=== PATIENT | male | born 1945 | race Caucasian/White ===

== ENCOUNTER → 2020-02-19 10:43 | Outpatient (BNVA) | payer MEDICARE, OTHER, SELFPAY | PROVIDERS: PCP Internal Medicine; Referring Provider Internal Medicine; Visit Provider Urology | DX: Z76.89 Persons encountering health services in other specified circumstances (principal) | CPT/HCPCS: Q3014 ==

== ENCOUNTER → 2021-02-24 10:12 | Outpatient (BNVA) | payer MEDICARE, SELFPAY | PROVIDERS: PCP Internal Medicine; Visit Provider Urology | DX: N40.1 Benign prostatic hyperplasia with lower urinary tract symptoms (principal) | CPT/HCPCS: Q3014 ==

== ENCOUNTER → 2022-02-24 08:35 | Outpatient (BNVA) | payer MEDICARE, SELFPAY | PROVIDERS: PCP Internal Medicine; Visit Provider Urology | DX: N40.1 Benign prostatic hyperplasia with lower urinary tract symptoms (principal); R97.20 Elevated prostate specific antigen [PSA] | CPT/HCPCS: Q3014 ==

== ENCOUNTER 2023-02-24 11:11 | Outpatient (AMB) | payer MEDICARE, OTHER, SELFPAY ==
--- NOTE | 2023-02-24 11:18 | MHC.OFFVIS ---
Intake Intake Visit Reasons: 1Y PSA(set) Intake Note: Patient is Present for Follow Up PSA/PVR Urology Medication: Finasteride, Antibiotic Allergies: Penicillin, Levofloxacin Blood Thinners: None PVR: 0ml Allergies levofloxacin [Levaquin] Allergy (Unknown, Verified 02/24/23 11:25) Unknown penicillin V Allergy (Unknown, Verified 02/24/23 11:25) Unknown ivp Allergy (Unknown, Uncoded 02/24/23 11:25) Unknown HPI HPI Comments History of Present Illness Details Vinicius is a pleasant male. He is a patient of Dr. Ray. He seen for the following urologic conditions - lower urinary tract symptoms Doing well with current urinary parameters Minimal nocturia PSA remaining low at 1.6 Could reduce finasteride to Tuesday, Tuesday, Tuesday Twelve month follow-up Recent evaluation for tingling in his hands He suspects ulnar nerve entrapment Elevated PSA/Abnormal VICKI: Significant PSA dropped continuing Discussed results Will continue medication. He presents for further evaluation of elevated PSA. Current management is medication with 5AR. Laboratory investigations include a free and total PSA evaluation July 2005 5.7, July 2006 4.6, August 2008 7.0, October 2009 6.0, July 2010 4.9, July 2011 6.0, October 2014 4.6, October 2014 4.2, July 2015 3.6, Apr 2016 6.1, 11/11 2.4, 12/13 3.4, 12/14 2.4. - 01/14 1.8, 01/15 1.7, 01/16 1.4, 02/17 1.6 Individualized Prostate Cancer Risk Calculator 5-10% high risk, , Would like to continue with observation and understands and accepts the risks of a possible delay in diagnosis. A TRUS biopsy has been performed and is negative 04/2009 Symptoms include weak stream, intermittency, and are stable. Overall symptoms are mild. Therapeutic plan will be Continue finasteride [facility] Medical History Arthritis Hyperlipidemia GERD (gastroesophageal reflux disease) Nocturia Weak urinary stream Benign prostatic hyperplasia without lower urinary tract symptoms Elevated PSA Surgical History History of surgery Review of Systems Const Denies chills and Denies fever(s) Card Reports no additional complaints and Denies syncope Resp Denies cough GI Denies abdominal pain and Denies heartburn Reports as per HPI and Denies change in libido Neuro Denies syncope Psych Denies change in libido Endo Denies change in libido Physical Exam Const General: cooperative, healthy appearing, comfortable and no acute distress Orientation/consciousness: patient oriented x3 HEENT Face and sinus: Yes normal facial exam Mouth: moist mucous membranes Neck Neck: Yes normal visual inspection, Yes full ROM and Yes trachea midline Chest Chest palpation & inspection: normal inspection of the chest Resp Effort & Inspection: normal respiratory effort, able to speak in complete sentences and no respiratory distress GI Inspection: Yes normal to inspection Back/Spine/Pelvis Cervical Spine: normal cervical lordosis Thoracic/Lumbar Spine: thoracic and lumbar spine normal to inspection Skin General skin exam: no rashes or lesions noted Neuro General: patient oriented x3, gait normal, tone normal and moves all extremities Extrem General: Yes normal to inspection and Yes capillary refill normal Assessment & Plan Assessment & Plan (1) BPH loc w urin obs/LUTS: Code(s): N40.1 - Benign prostatic hyperplasia with lower urinary tract symptoms (2) Elevated PSA: Code(s): R97.20 - Elevated prostate specific antigen [PSA] Plan Reduce finasteride to Tuesday Twelve month follow-up Orders: Orders Prostate Specific Antigen 364 Days N40.1 - Benign prostatic hyperplasia with lower urinary tract symptoms Patient Instructions: Imaging studies, laboratory and physical exam results were discussed and reviewed in detail. No major barriers to patient understanding were identified. An opportunity to ask questions regarding the treatment plan was provided. All questions were answered. The patient expressed understanding and agreement with the above treatment plan. The patient is aware they should contact our office by phone for worsening of their current condition or the appearance of new urologic symptoms. Compliance is encouraged with any medications and followup testing that is ordered. It is a privilege to participate in the urologic care of your patient. If you have any questions or concerns regarding treatment for the above conditions, or other urologic issues, please do not hesitate to contact me. The office telephone contact is [phone]. This note is constructed using voice recognition software. While every effort has been made to ensure accuracy pharmacist in charge errors may have been included. Yours sincerely, Dr Juan Jones MD, [facility] - Urology Providers of Expert, Compassionate Care for the Genitourinary System Coding Level of Care Code Est Pt Level 4 (64931) Diagnoses BPH loc w urin obs/LUTS N40.1 Elevated PSA R97.20
== END 2023-02-24 11:42 | disposition home or self-care (01) ==
PROVIDERS: Visit Provider Urology
DX: N40.1 Benign prostatic hyperplasia with lower urinary tract symptoms (principal); R97.20 Elevated prostate specific antigen [PSA]
CPT/HCPCS: 99213

== ENCOUNTER → 2023-02-24 11:11 | Outpatient (BNVA) | payer MEDICARE, OTHER, SELFPAY | PROVIDERS: Visit Provider Urology | DX: N40.1 Benign prostatic hyperplasia with lower urinary tract symptoms (principal); N13.8 Other obstructive and reflux uropathy; R97.20 Elevated prostate specific antigen [PSA] | CPT/HCPCS: 99212 ==

== ENCOUNTER 2024-02-22 08:38 | Outpatient (AMB) | payer MEDICARE, SELFPAY ==
--- NOTE | 2024-02-22 08:40 | MHC.OFFVIS ---
Intake Visit Reasons: 1Y PSA(set) Intake Note: Patient is present for PSA Urology Med: Finasteride Antibiotic Allergy: Levofloxacin, Penicillin Blood Thinner: None PSA: 02/09/24- 2.0 [employer] Assistant Required: No Accompanied by: Self / Same As Patient Allergies levofloxacin [Levaquin] Allergy (Unknown, Verified 02/22/24 08:44) Unknown penicillin V Allergy (Unknown, Verified 02/22/24 08:44) Unknown ivp Allergy (Unknown, Uncoded 02/22/24 08:44) Unknown HPI Comments Details: Vinicius is a pleasant male. He is a patient of Dr. Ray. He seen for the following urologic conditions - lower urinary tract symptoms Finasteride reduced to Tuesday, Tuesday, Tuesday 12 month follow-up PSA remaining low at 2.0 Continue yearly evaluation Episode of nephrolithiasis last June Seen at [facility] Apparently did not have any other stones Discussed reduction of oxalate foods Increased water Add 1 oz lemon juice Elevated PSA/Abnormal VICKI: Significant PSA dropped continuing Discussed results Will continue medication. He presents for further evaluation of elevated PSA. Current management is medication with 5AR. Laboratory investigations include a free and total PSA evaluation July 2005 5.7, July 2006 4.6, August 2008 7.0, October 2009 6.0, July 2010 4.9, July 2011 6.0, October 2014 4.6, October 2014 4.2, July 2015 3.6, Apr 2016 6.1, 11/11 2.4, 12/13 3.4, 12/14 2.4. - 01/14 1.8, 01/15 1.7, 01/16 1.4, 02/17 1.6 Individualized Prostate Cancer Risk Calculator 5-10% high risk, , Would like to continue with observation and understands and accepts the risks of a possible delay in diagnosis. A TRUS biopsy has been performed and is negative 04/2009 Symptoms include weak stream, intermittency, and are stable. Overall symptoms are mild. Therapeutic plan will be Continue finasteride [facility] Medical History Arthritis Hyperlipidemia GERD (gastroesophageal reflux disease) Nocturia Weak urinary stream Benign prostatic hyperplasia without lower urinary tract symptoms Elevated PSA Surgical History History of surgery Review of Systems Const Denies chills and Denies fever(s) Card Reports no additional complaints and Denies syncope Resp Denies cough GI Denies abdominal pain and Denies heartburn Reports as per HPI and Denies change in libido Neuro Denies syncope Psych Denies change in libido Endo Denies change in libido Physical Exam Const General: cooperative, healthy appearing, comfortable and no acute distress Orientation/consciousness: patient oriented x3 HEENT Face and sinus: Yes normal facial exam Mouth: moist mucous membranes Neck Neck: Yes normal visual inspection, Yes full ROM and Yes trachea midline Chest Chest palpation & inspection: normal inspection of the chest Resp Effort & Inspection: normal respiratory effort, able to speak in complete sentences and no respiratory distress GI Inspection: Yes normal to inspection Back/Spine/Pelvis Cervical Spine: normal cervical lordosis Thoracic/Lumbar Spine: thoracic and lumbar spine normal to inspection Skin General skin exam: no rashes or lesions noted Neuro General: patient oriented x3, gait normal, tone normal and moves all extremities Extrem General: Yes normal to inspection and Yes capillary refill normal Assessment & Plan Assessment & Plan (1) Nephrolithiasis: Code(s): N20.0 - Calculus of kidney Category: Medical (2) Elevated PSA: Code(s): R97.20 - Elevated prostate specific antigen [PSA] Category: Medical Plan 12 month follow-up renal ultrasound Orders: Orders US renal BI 12 Months N20.0 - Calculus of kidney Patient Instructions: Imaging studies, laboratory and physical exam results were discussed and reviewed in detail. No major barriers to patient understanding were identified. An opportunity to ask questions regarding the treatment plan was provided. All questions were answered. The patient expressed understanding and agreement with the above treatment plan. The patient is aware they should contact our office by phone for worsening of their current condition or the appearance of new urologic symptoms. Compliance is encouraged with any medications and followup testing that is ordered. It is a privilege to participate in the urologic care of your patient. If you have any questions or concerns regarding treatment for the above conditions, or other urologic issues, please do not hesitate to contact me. The office telephone contact is [phone]. This note is constructed using voice recognition software. While every effort has been made to ensure accuracy manager software development errors may have been included. Yours sincerely, Dr Juan Jones MD, [facility] - Urology Providers of Expert, Compassionate Care for the Genitourinary System Coding Level of Care Code Est Pt Level 4 (75478) Diagnoses Nephrolithiasis N20.0 Elevated PSA R97.20
== END 2024-02-22 09:15 | disposition home or self-care (01) ==
PROVIDERS: PCP Internal Medicine; Visit Provider Urology
DX: N20.0 Calculus of kidney (principal); R97.20 Elevated prostate specific antigen [PSA]
CPT/HCPCS: 99214

== ENCOUNTER → 2024-02-22 08:38 | Outpatient (BNVA) | payer MEDICARE, SELFPAY | PROVIDERS: PCP Internal Medicine; Visit Provider Urology | DX: N20.0 Calculus of kidney (principal); R97.20 Elevated prostate specific antigen [PSA] | CPT/HCPCS: 99212 ==

== ENCOUNTER 2025-02-11 07:44 | Outpatient (REF) | payer MEDICARE, OTHER, SELFPAY ==
[2025-02-11 11:35] LABS: Prostate Specific Antigen 2.65 ng/mL (<0.05-4.0)
== END 2025-02-11 07:45 | disposition home or self-care (01) ==
LOC: HO.10HDL 07:44
PROVIDERS: Visit Provider Urology
DX: R97.20 Elevated prostate specific antigen [PSA] (principal); Z12.5 Encounter for screening for malignant neoplasm of prostate
CPT/HCPCS: 36415; 84153

== ENCOUNTER 2025-02-12 15:05 | Outpatient (REF) | payer MEDICARE, OTHER, SELFPAY ==
--- NOTE | ~2025-02-12 | US_ITS ---
EXAMINATION: US RETROPERITONEAL LIMITED (RENAL ONLY) CLINICAL INFORMATION: N20.0 calculus of kidney.. COMPARISON: None available. TECHNIQUE: Real-time ultrasound kidneys using grayscale technique. FINDINGS: RIGHT KIDNEY: 12 x 4 x 6 cm (SAG x AP x TRV). Volume: 165 cc. Normal echotexture. Renal cortical thickness is normal. No hydronephrosis. 0.8 cm small anechoic lesion at the corticomedullary junction of the lower pole without septations or nodular components. LEFT KIDNEY: 11 x 6 x 5 cm (SAG x AP x TRV).. Volume: 160 cc. Normal echotexture Renal cortical thickness is normal. No hydronephrosis. No solid or cystic lesion. US/US renal BI IMPRESSION: No hydronephrosis. No gross nephrolithiasis. 0.8 cm cyst, right kidney.. Electronically signed by: Sid Stapleton MD 02/12/2025 03:44 PM EST
== END 2025-02-12 15:06 | disposition home or self-care (01) ==
LOC: HO.US 15:05
PROVIDERS: PCP Internal Medicine; Visit Provider Urology
DX: N20.0 Calculus of kidney (principal)
CPT/HCPCS: 76775

== ENCOUNTER → 2025-02-12 15:09 | Outpatient (BNV) | payer MEDICARE, OTHER, SELFPAY | PROVIDERS: PCP Internal Medicine; Visit Provider Radiology Diagnostic Radiology | DX: N28.1 Cyst of kidney, acquired (principal) | CPT/HCPCS: 76775 ==

== ENCOUNTER 2025-02-19 08:34 | Outpatient (AMB) | payer MEDICARE, SELFPAY ==
--- NOTE | 2025-02-19 08:36 | A.OFFVIS_ITS ---
Intake Visit Reasons: 1Y PSA/US Intake Note: Patient is present for 1 yr follow up Urology Med: Finasteride Antibiotic Allergy: Levofloxacin, Penicillin Blood Thinner: None Imaging done : 02/12/25 Renal Ultrasound PSA: 02/12/25- PSA 2.65 Assistant Operator Required: No Accompanied by: Self / Same As Patient Allergies levofloxacin (Levaquin) Allergy (Unknown, Verified 02/22/24 08:44) Unknown penicillin V Allergy (Unknown, Verified 02/22/24 08:44) Unknown ivp Allergy (Unknown, Uncoded 02/22/24 08:44) Unknown HPI Comments Details: Vinicius is a pleasant male. He is a patient of Dr. Ray. He seen for the following urologic conditions - lower urinary tract symptoms - nephrolithiasis Finasteride reduced to Tuesday, Tuesday, Tuesday 12 month follow-up PSA remaining low at 2.6 Continue yearly evaluation Renal ultrasound - small cyst no stones Elevated PSA/Abnormal VICKI: Significant PSA dropped continuing Discussed results Will continue medication. He presents for further evaluation of elevated PSA. Current management is medication with 5AR. Laboratory investigations include a free and total PSA evaluation July 2005 5.7, July 2006 4.6, August 2008 7.0, October 2009 6.0, July 2010 4.9, July 2011 6.0, October 2014 4.6, October 2014 4.2, July 2015 3.6, Apr 2016 6.1, 11/11 2.4, 12/13 3.4, 12/14 2.4. - 01/14 1.8, 01/15 1.7, 01/16 1.4, 02/17 1.6, 02/18 2.0, 02/19 2.6 Individualized Prostate Cancer Risk Calculator 5-10% high risk, , Would like to continue with observation and understands and accepts the risks of a possible delay in diagnosis. A TRUS biopsy has been performed and is negative 04/2009 Symptoms include weak stream, intermittency, and are stable. Overall symptoms are mild. Therapeutic plan will be Continue finasteride [facility] Medical History Arthritis Hyperlipidemia GERD (gastroesophageal reflux disease) Nocturia Weak urinary stream Benign prostatic hyperplasia without lower urinary tract symptoms Elevated PSA Surgical History History of surgery Review of Systems Const Denies chills and Denies fever(s) Card Reports no additional complaints and Denies syncope Resp Denies cough GI Denies abdominal pain and Denies heartburn Reports as per HPI and Denies change in libido Neuro Denies syncope Psych Denies change in libido Endo Denies change in libido Physical Exam Const General: cooperative, healthy appearing, comfortable and no acute distress Orientation/consciousness: patient oriented x3 HEENT Face and sinus: Yes normal facial exam Mouth: moist mucous membranes Neck Neck: Yes normal visual inspection, Yes full ROM and Yes trachea midline Chest Chest palpation & inspection: normal inspection of the chest Resp Effort & Inspection: normal respiratory effort, able to speak in complete sentences and no respiratory distress GI Inspection: Yes normal to inspection Back/Spine/Pelvis Cervical Spine: normal cervical lordosis Thoracic/Lumbar Spine: thoracic and lumbar spine normal to inspection Skin General skin exam: no rashes or lesions noted Neuro General: patient oriented x3, gait normal, tone normal and moves all extremities Extrem General: Yes normal to inspection and Yes capillary refill normal Assessment & Plan Assessment & Plan (1) BPH loc w urin obs/LUTS: Code(s): N40.1 - Benign prostatic hyperplasia with lower urinary tract symptoms Category: Medical (2) Elevated PSA: Code(s): R97.20 - Elevated prostate specific antigen [PSA] Category: Medical (3) Nephrolithiasis: Code(s): N20.0 - Calculus of kidney Category: Medical Plan Twelve month follow-up repeat PSA Orders: Orders Prostate Specific Antigen 02/11/25 R97.20 - Elevated prostate specific antigen [PSA] Prostate Specific Antigen 12 Months R97.20 - Elevated prostate specific antigen [PSA] Patient Instructions: This note is constructed using voice recognition software. While every effort has been made to ensure accuracy stenographer secretary errors may have been included. Imaging studies, laboratory and physical exam results were discussed and reviewed in detail. No major barriers to patient understanding were identified. An opportunity to ask questions regarding the treatment plan was provided. All questions were answered. The patient expressed understanding and agreement with the above treatment plan. The patient is aware they should contact our office by phone for worsening of their current condition or the appearance of new urologic symptoms. Compliance is encouraged with any medications and followup testing that is ordered. It is a privilege to participate in the urologic care of your patient. If you have any questions or concerns regarding treatment for the above conditions, or other urologic issues, please do not hesitate to contact me. The office telephone contact is [phone]. Sincerely, Dr Juan Jones MD, [facility] - Urology Compassionate Specialist Care for the Genitourinary System Coding Level of Care Code Complex visit Add On G2211 Diagnoses BPH loc w urin obs/LUTS N40.1 Elevated PSA R97.20 Nephrolithiasis N20.0
== END 2025-02-19 09:41 | disposition home or self-care (01) ==
LOC: HO.HUSH 08:35
PROVIDERS: PCP Internal Medicine; Visit Provider Urology
DX: N40.1 Benign prostatic hyperplasia with lower urinary tract symptoms (principal); R97.20 Elevated prostate specific antigen [PSA]; N20.0 Calculus of kidney
CPT/HCPCS: 99213; G2211

== ENCOUNTER → 2025-02-19 08:34 | Outpatient (BNVA) | payer MEDICARE, SELFPAY | PROVIDERS: PCP Internal Medicine; Visit Provider Urology | DX: N40.1 Benign prostatic hyperplasia with lower urinary tract symptoms (principal); N13.8 Other obstructive and reflux uropathy; R97.20 Elevated prostate specific antigen [PSA]; N20.0 Calculus of kidney | CPT/HCPCS: 99212 ==